=== PATIENT | female | born 1955 | race Caucasian/White ===

== ENCOUNTER 2024-10-08 23:30 | Emergency (ER) | payer MEDICARE, SELFPAY ==
--- OUTSIDE RECORDS SUMMARY | 2024-05-09 05:01 | XMS_ITS | Continuity of Care Document ---
Author Organization [facility] Address [address] [address] [place] [address] Phone Care Team Providers Care Environmental Science Technician Name Role Phone Yenny Walsh CRNA Unavailable Unavailable Allergies, Adverse Reactions, Alerts Substance Reaction Status Criticality amoxicillin Rash Active No Information walnut raw tissue in mouth Active No Infor mation No Known Allergies Resolved No Inform ation WARNIN allergy(ies) could not be collected because the type is not supported. Please contact the source practice for further details. Medications Medication Instructions Dosage Effective Dates (start - stop) Status Comments PAROXETINE HCL (unknown strength) take 1 tablet by oral route every day Not Available - Active medroxyprogesterone 2.5 mg tablet take 1 tablet by oral route every day 2.5 MG - Active Divigel 0.25 mg/0.25 gram (0.1 %) transdermal gel packet apply 1 packet by topical route every day to upper thigh - Active escitalopram 5 mg tablet take 1 tablet b y oral route every day 5 MG - Active Vitamin D3 400 unit capsule take 1 tablet by oral route every day 1 tablet - Active PROGESTERONE (unknown strength) take 1 capsule by oral route every day for 12 days in the evening sequentially per 28 day cycle Not Available - No Longer Active Procedures Procedure Date Colonoscopy Flex; W/remov Les- 24 Level Iv-surg Path Gross/micro 24 Colonoscopy Flex; W/bx 1/mx Level Iv-surg Path Gross/micro 19 Colonoscopy Flex; W/remov Les- 14 Level Iv-surg Path Gross/micro 14 Colonosocpy Flex; Remov Les-fo 09 Level Iv-surg Path Gross/micro 09 Advance Directives Directive Yes / No Effective Date File Name No Information Encounters Encounter Description Practice Location Reason(s) For Visit Diagnoses Date Provider Providers Copied on Encounter [facility], [address] [address], [place], [place], [id number], [place] tel:[phone] [facility] No Information 4 Nico Ramon. [address] [facility], [address], [id number], [place]. tel:[phone] Referring Provider: [place], [address] [place] [address], [address]. [phone] [facility], [address] [address], [place], [place], [id number], [place] tel:[phone] [facility] GI Symptoms or Concerns (chief complaint) Colorectal polypsHemorrhoi ds, internalEncount er for follow-up examination after completed treatment for conditions other than malignant neoplasmBenign neoplasm of transverse colonBenign neoplasm of sigmoid colon 4 Violeta Rizo. [address] [facility], [address], [id number], [place]. tel:[phone] Referring Provider: Referral Self, USE FOR SELF REFERRALS. [facility], [address] [address], [place], [place], [id number], [place] tel:[phone] [facility] No Information 4 Jey Zhao. [address] [facility], [facility] [address], [place], [id number], [place]. tel:[phone] [facility], [address] [address], [place], [place], [id number], [place] tel:[phone] [facility] No Information 9 No Information Referring Provider: Isaiah Garcia MD, [address] [facility] [address], [place], [address]. tel:[phone] [facility], [address] [address], [place], [place], [id number], tel:[phone] [facility] Colorectal polypsPersonal history of colonic polypsDiverticu losis of colonInternal hemorrhoidsEnco unter for screening for malignant neoplasm of colonBenign neoplasm of ascending colonBenign neoplasm of transverse colonEncounter for screening for malignant neoplasm of colonBenign neoplasm of transverse colonBenign neoplasm of ascending colonPersonal history of colonic polyps 9 Radha Colon. [address] [facility], [facility] [address], [place], [place], [id number], [place]. tel:[phone] Referring Provider: Referral Self, USE FOR SELF REFERRALS. [facility], [address] [address], [place], [place], [id number], [place] tel:[phone] [facility] Personal History Colon PolypsPersonal history of colonic polyps 4 No Information [facility], [address] [address], [place], [place], [id number], [place] tel:[phone] [facility] Colon polypPersonal history of colon polypPersonal History Colon PolypsBenign Neoplasm Colon 4 No Information Referring Provider: Referral Self, USE FOR SELF REFERRALS. [facility], [address] [address], [place], [place], [id number], [place] tel:[phone] [facility] Family Hx GI Tract CancerColon Cancer ScreeningBenign Neoplasm Lg BowelFamily Hx GI Tract Cancer 9 No Information Family History Family Member Type Diagnosis Age At Onset Mother Problem (finding) Colon polyps Father Problem (finding) Alive and well Mother Problem (finding) Alive and well Father Problem (finding) Asthma Son Problem (finding) Alive and well Mother Problem (finding) cancer of colon Father Problem (finding) Diverticular disease Son Problem (finding) asthma Daughter Problem (finding) Alive and well Immunizations Vaccine Date Status Comments SARS-COV-2 (COVID-19) vaccin e, mRNA, spike protein, LNP, preservative free, 100 mcg/0.5mL dose or 50 mcg/0.25mL dose administered Note: [facility] bi -directional interface ; Source: Other Registry Afluria Qd administered Note: [facility] bi-directional interface ; Source: Other Registry tetanus toxoid, reduced diphtheria toxoid, and acellular pertussis vaccine, adsorbed administered Note: [facility] b i-directional interface ; Source: Other Registry Influenza, split virus, trivalent, injectable, contains preservative administered Note: [facility] bi-direct ional interface ; Source: Other Registry Influenza, seasonal, injectable administe red Note: [facility] bi- directional interface ; Source: Other Registry tetanus and diphtheria toxoi ds, adsorbed, preservative free, for adult use (2 Lf of tetanus toxoid and 2 Lf of diphtheria toxoid) administered Note: [facility] bi-direct ional interface ; Source: Other Registry tetanus and diphtheria toxoi ds, adsorbed, preservative free, for adult use (2 Lf of tetanus toxoid and 2 Lf of diphtheria toxoid) administered Note: [facility] bi-direct ional interface ; Source: Other Registry Payers Payer name Insurance type Covered green party ID Authoriza tion(s) Blue Cross Medicare Advantage [id number] 2000 Social History Type Description Quantity Date Captured Comments Sex Female Smoking Status No Information Chief Complaint And Reason For Visit No Information Reason For Referral Reason For Referral No Information Plan Of Treatment Date Type Action Status Referral Ordered: Colonoscopy Appointment date/timeframe: 05/05/2019 ordered History Of Present Illness Encounter Date Complaint History Of Prese nt Illness GI Symptoms or Concerns Functional Status Date Functional Assessmen t No Information Instructions Date Instruction Additional Infor mation Colon Cancer Prevention Related to Colorectal polyps Colon Polyps Related to Color ectal polyps Hemorrhoids (Internal) Related t o Colorectal polyps Diverticulosis/Diverticulitis Re lated to Personal history of colonic polyps Colon Polyps Related to Perso nal history of colonic polyps Hemorrhoids Related to Perso nal history of colonic polyps Colon Cancer Prevention Related to Personal history of colonic polyps High Fiber Diet Related to Perso nal history of colonic polyps Colon Cancer Prevention Related to Colon polyp Colon Polyps Related to Colon polyp Assessments Type Assessment Date No Information Patient Care Teams Name Effective Dates (start - stop) Status Members No Information
--- OUTSIDE RECORDS SUMMARY | 2024-10-08 15:40 | XMS_ITS | Encounter Summary ---
Author Organization [facility] Address [address], [place] [address] Care Team Providers Care Draw Frame Runner Name Role Phone LesterTelly martins MD Primary Care Provider [phone] Reason for Visit * Reason Comments Animal Bite Encounter Details Date Type Department Care Team (Late st Contact Info) Description 10/08/2024 3:40 PM CDT Office Visit [place] [facility] [address] [place] [address] [place] [address] [place], [place] [phone] Dog bite, initial encounter Social History Tobacco Use Types Packs/Day Years Used Date Smoking Tobacco: Never Smokeless Tobacco: Never Alcohol Use Standard Drinks/Week Comments Yes 0 (1 standard drink = 0.6 oz pur e alcohol) on occasion PHQ-2 Answer Date Recorded PHQ-2 Score 0 09/03/2020 Comments No Sex and Gender Information Value Date Recorded Sex Assigned at Not on file Legal Sex Female 1:56 PM CDT Gender Identity Not on file Sexual Orientation Not on file documented as of this encounter Last Filed Vital Signs Vital Sign Reading Time Taken Comments Blood Pressure 122/67 10/08/2024 3:35 PM CDT Pulse 68 10/08/2024 3:35 PM CDT Temperature 36.7 C (98 F) 10/08/2024 3:35 PM CDT Respiratory Rate 16 10/08/2024 3:35 PM CDT Oxygen Saturation 98% 10/08/2024 3:35 PM CDT Inhaled Oxygen Concentration - - Weight - - Height - - Body Mass Index - - documented in this encounter Progress Notes * Fina Thomas MD - 10/08/2024 3:40 PM CDT Brenna Hope is a 69 y.o.female presents to the Urgent Care for Animal Bite Symptoms began: 9 hour(s) ago. Fever: absent. Other associated symptoms: dog bite to left hand - dog up to date on shots. Td 2017. Hand is stiff and painful Patient requests an excuse letter for work/school: No Subject 64 years old female presented today to clinic with her with concern about she gotbitten by her own doc, her doc is up-to-date with immunization, the bite is on her left hand. She washed it tried away with soap and water she put some triple antibiotic on it and she came to the clinic, her tetanus shots it was 2017, reviewed the system above all other negative No past medical history on file. Object BP 122/67 (BP Location: Right Arm, BP Cuff Size: Regular - Long) Pulse 68 Temp 36.7 ??C (98 ??F) (Oral) Resp 16 SpO2 98% Vital signs stable alert oriented she does not seems to be distress HEENT negative neck supple Lungs clear Cardiac S1-S2 regular Her upper extremities shoulder elbow wrist joints symmetrical she has penetrated wound in her left hand in 2 places close to her left wrist were the upper bite area is joints soft tissues swollen thejoint but the soft tissue swollen it is not red not hot not tender at this time the rest of her dorsal side of the hand it is not swollen no redness, I squeeze on the bite area the bite are deep, ther e was some fluid coming probably it was from also her fluid that is she wash the hand, there is no indication at this time in so short time that is pus formed, and patient stated it hurt Assessment Dog bite left hand patient took it is up-to-date with immunization I did irrigated with good amount of normal saline 16 in gauge needle deep irrigation almost each side 20 cc Because of the swollen is concern of deep infection patient is allergic to amoxicillin I give her 1g Rocephin Put her also on doxycycline b.i.d. and Flagyl 500 mg 3 times a day, tetanus shots also given Worse additional symptom concern question back to the clinic I warned the patient if any swollen joint pain the pain redness fever need to be seen right away to the emergency room she may need IV antibiotic If continue to improve please rechecked in 72 hours she agree 30 minute management face to face with the patient documented in this encounter Nursing Notes * Rosanne Bowling RN - 10/08/2024 3:40 PM CDT Brenna Hope is a 69 y.o.female presents to the Urgent Care for Animal Bite Symptoms began: 9 hour(s) ago. Fever: absent. Other associated symptoms: dog bite to left hand - dog up to date on shots. Td 2017. Hand is stiff and painful Patient requests an excuse letter for work/school: No documented in this encounter Plan of Treatment Not on file documented as of this encounter Visit Diagnoses Diagnosis Dog bite, initial encounter documented in this encounter Administered Medications Inactive Administered Medications - up to 3 most recent administrations Medication Order MAR Action Action Date Dose Rate Site cefTRIAXone (ROCEPHIN) 1,000 mg in lidocaine PF (XYLOCAINE) 1 % 350 mg/mL IM injection 1,000 mg, Intramuscular, ONCE, On 10/08/24 at 1700, For 1 dose, ALL MEDICATIONS REQUIRING DOSAGE CALCULATION REQUIRE TWO CLINICAL STAFF TO VERIFY Provider orders need to be rounded to the nearest 50mg increment due to the inability to precisely draw up doses to the hundredth of a milliliter. Approved Diluents: 0.9% sodium chloride for injection, lidocaine, sterile water for injection For doses greater than 250 mg Ceftriaxone (ROCEPHIN) dilution instructions to make a 350 mg/mL concentration. Dilute 500 mg vial with 1.0 mL lidocaine 1% solution Dilute 1 gram vial with 2.1 mL lidocaine 1% solution Dosing Instructions: Dose Volume 300 mg 0.9 ml 350 mg 1 ml 400 mg 1.1 ml 450 mg 1.3 ml 500 mg 1.4 ml* 550 mg 1.6 ml 600 mg 1.7 ml 650 mg 1.9 ml 700 mg 2 ml 750 mg 2.1 ml 800 mg 2.3 ml 850 mg 2.4 ml 900 mg 2.6 ml 950 mg 2.7 ml 1 g 2.9 ml * *Withdraw entire reconstituted amount; reconstituted liquid may vary and not be a complete 1.4 mL Withdraw entire reconstituted amount; reconstituted liquid may vary and not be a complete 2.9 mL Example: Provider orders 350 mg. Use the 500 mg vial and add 1 mL diluent. Volume to draw up and administer is 1 ml. The remaining medication is discarded. Example: Provider orders 500 mg. Use the 500 mg vial and add 1 mL diluent. Volume to draw up and administer is 1.4 ml. There is no remaining medication. Example: Provider orders 850 mg. Use the 1 g vial and add 2.1 mL diluent. Volume to draw up and administer is 2.4 ml. The remaining medication is discarded. Example: Provider orders 1 g. Use the 1 g vial and add 2.1 mL diluent. Volume to draw up and administer is 2.9 ml. There is no remaining medication, Indications: Skin and Soft Tissue InfectionIndications:Ski n and Soft Tissue Infection Given 10/08/2024 4:55 PM CDT 1,000 mg Left Ventralgluteal documented in this encounter Care Teams Draw Frame Runner Relationship Specialty [place] [address] [place] [address] PCP - General Family Practice 10/16/16 documented as of this encounter
--- OUTSIDE RECORDS SUMMARY | 2024-10-08 15:40 | XMS_ITS | Encounter Summary ---
Author Organization [facility] Address [address], [place] [address] Care Team Providers Care Capacity Management Specialist Name Role Phone LesterTelly martins MD Primary Care Provider [phone] Reason for Visit * Reason Comments Animal Bite Encounter Details Date Type Department Care Team (Late st Contact Info) Description 10/08/2024 3:40 PM CDT Office Visit [place] [address] [facility] [address] [place] [address] [place] [address] [place], [place] [phone] Dog bite, initial encounter Social History Tobacco [...] Ventralgluteal documented in this encounter Care Teams Capacity Management Specialist Relationship Specialty [place] [address] [place] [address] PCP - General Family Practice 10/16/16 documented as of this encounter
--- OUTSIDE RECORDS SUMMARY | 2024-10-08 23:32 | XMS_ITS | Clinical Summary ---
Author Organization [facility] Address [address] [facility] [place] [address] Care Team Providers Care Neonatologist Name Role Phone LesterTelly MD Primary Care Provider [phone] Source Comments You are receiving this document as you are listed as the primary care provider,follow-up provider, or the patient has been referred to you for consultation.This is in compliance with the Medicare and[facility] EHR Incentive Program,which states Providers who transition their patient to another setting of careor provider of care or refers their patient to another provider of care shouldprovide summary care record for each transition of care or referral. [facility] Allergies Active Allergy Reactions Criticality Noted Date Comments Amoxicillin Rash 10/16/2016 Other Hives,Other, see comments High 07/09/2022 Medications medroxyPROGESTE Hudson (PROVERA) 2.5 MG tablet Take 2 Tablets by mouth daily. 9 Active omega-3 fatty acids (FISH OIL) 1000 MG capsule Take 2 Capsules (2,000 mg) by mouth daily. Active PARoxetine (PAXIL) 10 MG tablet Take 1 Tablet (10 mg) by mouth daily. 3 Active traZODone (DESYREL) 50 MG tablet Take 1 Tablet (50 mg) by mouth daily at bedtime. 2 Active calcium carbonate 600 MG tablet Take 1 Tablet (600 mg) by mouth daily. Active estradiol (ESTRACE) 0.1 MG/GM vaginal cream SMARTSI.25 Applicator Vaginal 3 Times a Week 4 Active doxycycline hyclate (VIBRA-TABS) 100 MG tabletIndicatio ns:Dog bite, initial encounter Take 1 Tablet (100 mg) by mouth two times a day for 10 days. 20 Tablet 5 10/19/19 25 Active metroNIDAZOLE (FLAGYL) 500 MG tabletIndicatio ns:Dog bite, initial encounter Take 1 Tablet (500 mg) by mouth two times a day for 10 days. 20 Tablet 5 10/19/19 25 Active Hospital, Clinic, or Other Facility Administered Medication Ordered Dose Route Frequency Start Date End Date Status cefTRIAXone (ROCEPHIN) 1,000 mg in lidocaine PF (XYLOCAINE) 1 % 350 mg/mL IM injectionIndications:Skin and Soft Tissue Infection 1000 mg IM ONCE 10/08/2024 10/08/2024 Ended Active Problems Problem Noted Date Diagnosed Date Hot flashes 10/16/2016 Encounters Date Type Department Care Team Description 10/08/2024 3:40 PM CDT Office Visit [facility] [address] [facility] [address] [place] [address] Fina Thomas MD Dog bite, initial encounter from Last 3 Months Immunizations Immunization Administration Dates Next Due Flu Vac (3+ yrs) 04/23/2006 Influenza IIV4 (Quadrivalent) 0.5mL (32973) 02/09 Influenza, Unspecified Formulation 03/05/2020 Moderna Monovalent 12+ 08/23/2020 Td (7+ yrs) 04/10/2005,01/20/2003 Tdap 10/08/2024,10/16/2016 Family History Medical History Relation Name Comments Ulcerative Colitis Mother Cancer, Breast Negative Family History Cancer, Ovary Negative Family History Relation Name Status Comments Father Mother Alive Social History Tobacco Use Types Packs/Day Years Used Date Smoking Tobacco: Never Smokeless Tobacco: Never Tobacco Cessation:Counseling Given: Not Answered Alcohol Use Standard Drinks/Week Comments Yes 0 (1 standard drink = 0.6 oz pur e alcohol) on occasion PHQ-2 Answer Date Recorded PHQ-2 Score 0 09/03/2020 Comments No Sex and Gender Information Value Date Recorded Sex Assigned at Not on file Legal Sex Female 1:56 PM CDT Gender Identity Not on file Sexual Orientation Not on file Last Filed Vital Signs Vital Sign Reading Time Taken Comments Blood Pressure 122/67 10/08/2024 3:35 PM CDT Pulse 68 10/08/2024 3:35 PM CDT Temperature 36.7 C (98 F) 10/08/2024 3:35 PM CDT Respiratory Rate 16 10/08/2024 3:35 PM CDT Oxygen Saturation 98% 10/08/2024 3:35 PM CDT Inhaled Oxygen Concentration - - Weight 66.7 kg (147 lb) 07/09/2022 11:05 AM CRUSHER OPERATOR Height 167.6 cm (5' 6) 07/09/2022 11:05 AM CRUSHER OPERATOR Body Mass Index 23.73 07/09/2022 11:05 AM CRUSHER OPERATOR Plan of Treatment Health Maintenance Due Date Last Done Comments Hep C Screening (Preventive Services) 1955 Medicare Annual Wellness Visit 1955 Cholesterol 2001 Pneumococcal Vaccine 50+ Yrs (1 of 1 - PCV) 2006 Zoster/Shingles Vaccine (1 of 2) 2006 COVID-19 Vaccine (2 - season) 2024 08/23/2020 Influenza Vaccine (Season Ended) 2025 03/06/2020, 03/05/2020, 04/23/2006 Mammogram 04/30/2025 04/30/2023, 040 12/2020 (Completed), 03/11/2016 (Completed) Colonoscopy 05/09/2027 05/09/2024, 05/2018 (Completed), 04/10/2015 (Completed) RSV Vaccine (1 - 1-dose 75+ series) 08/23/2031 DTaP/Tdap/Td Vaccine (3 - Tdap) 10/08/2034 10/08/2024, 10/16/2016, 04/10/2005, Additional history exists Cervical Cancer Screening Discontinued 2017 (Completed), 12/10/2015 (Completed) Dexa Completed 06/02/2021, 06/02/2021 HepA Vaccine Aged Out No longer eligi ble based on patient's age to complete this topic HepB Vaccine Aged Out No longer eligi ble based on patient's age to complete this topic Hib Vaccine Aged Out No longer eligi ble based on patient's age to complete this topic IPV (Polio) Vaccine Aged Out No longe r eligible based on patient's age to complete this topic MCV4 Vaccine Aged Out No longer eligi ble based on patient's age to complete this topic Meningococcal B Vaccine Aged Out No l onger eligible based on patient's age to complete this topic Procedures Procedure Name Priority Date/Time Associated Diagnosis Comments COLONOSCOPY S 05/09/2024 MM MAMMOGRAM SCREENING BILAT W CAD Routine 04/30/2023 10:50 AM CRUSHER OPERATOR Visit for screening mammogram BONE DENSITY 06/02/2021 from Last 3 Months or Most Recently Relevant to Health Maintenance Results * COLONOSCOPY S (05/09/2024) Telly Batista MD DUMMY/OTHER/AR Final Result * (ABNORMAL) MM Mammogram Screening Bilat W CAD (04/30/2023 10:50 AM CRUSHER OPERATOR) Anatomical Region Laterality Modality Breast Bilateral Mammography Impressions 04/30/2023 2:48 PM CRUSHER OPERATOR : ACR BI-RADS Category: 0 - Incomplete: Needs Additional Imaging Evaluation (left) RECOMMENDATION: Ultrasound The results and recommendations of this examination will be communicated to the patient and the imaging center will attempt to schedule any recommended follow up with the patient. As a result of the Century Cures Act, all medical imaging exams are released immediately to [facility]. You may be viewing this report before our scheduling staff and your referring provider. We will attempt to contact you by phone within one business day of this report to schedule any recommended follow-up exams. If you have questions, please contact your health care provider. Narrative 04/30/2023 2:48 PM CRUSHER OPERATOR MM MAMMOGRAM SCREENING BILAT W CAD performed on 04/30/23 Compared to: 08/16/2020 Foreign Image(S) Mammogram, 02/01/2018 Foreign Image(S) Mammogram, 04/24/2016 Foreign Image(S) Mammogram, and 10/20/2012 Foreign Image(S) Mammogram FINDINGS: Bilateral screening mammogram was performed with the assistance of Computer-Aided Detection . The breasts have scattered areas of fibroglandular density. There is an asymmetry in the left breast at the 2 o'clock position at anterior depth. The remainder of the breast tissue is unremarkable. us Linda Chicas MD RAD GIO Final Re sult * BONE DENSITY (06/02/2021) Anatomical Region Laterality Modality Other us Interface Provider DUMMY/OTHER/AR Final Resu lt from Last 3 Months or Most Recently Relevant to Health Maintenance Insurance [facility] MEDICARE ADVANTAGE BCBS MEDICARE ADVANTAGE [employer] BCBS MEDICARE ADVANTAGE Care Teams Neonatologist Relationship Specialty [place] [address] [place] [address] PCP - General Family Practice 10/16/16
--- OUTSIDE RECORDS SUMMARY | 2024-10-08 23:32 | XMS_ITS | Clinical Summary ---
Author Organization [facility] Address [address] [place] [address] Care Team Providers Care Asset Protection Greeter Name Role Phone Unknown, Doctor Primary Care Provider Unavailabl e Allergies Active Allergy Reactions Criticality Noted Date Comments Amoxicillin Nausea Only 10/18/2010 Medications [place]-3 Fatty Acids (FISH OIL) 500 mg capsule Take by mouth once daily. Two daily 0 10/18/2010 Active estradiol-noret hindrone, 0.05-0.14 mg, (COMBIPATCH) 0.05-0.14 mg/24 hr patch Apply 1 Patch on dry, clean, hairless skin every Thursday and . 0 10/21/2010 Active ketoconazole (NIZORAL) 200 mg tabletIndicatio ns:Tinea corporis Take 1 tablet by mouth once daily. 28 tablet 0 10/23/2011 Active Active Problems No known active problems Immunizations Immunization Administration Dates Next Due Td (Age >=7 Years) 04/10/2005 Family History Medical History Relation Name Comments Heart Disease Maternal Grandmother CHF Heart Disease Mother RHR Hypertension Mother Relation Name Status Comments Maternal Grandmother Mother Social History Tobacco Use Types Packs/Day Years Used Date Smoking Tobacco: Never Smokeless Tobacco: Never Tobacco Cessation:Counseling Given: No Alcohol Use Standard Drinks/Week Comments Yes 3.3 (1 standard drink = 0.6 oz p ure alcohol) Comments No Sex and Gender Information Value Date Recorded Sex Assigned at Not on file Legal Sex Female 8: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 Gender Identity Not on file Sexual Orientation Not on file Obstetrics History Last Filed Vital Signs Vital Sign Reading Time Taken Comments Blood Pressure 122/60 04/27/2013 10:07 AM GENERAL I FARMWORKER Pulse 60 04/27/2013 10:07 AM GENERAL I FARMWORKER Temperature 36.3 C (97.3 F) 04/27/2013 10:07 AM GENERAL I FARMWORKER Respiratory Rate - - Oxygen Saturation - - Inhaled Oxygen Concentration - - Weight 66.2 kg (146 lb) 04/27/2013 10:07 AM GENERAL I FARMWORKER Height 167.6 cm (5' 6) 04/27/2013 10:07 AM GENERAL I FARMWORKER Body Mass Index 23.56 04/27/2013 10:07 AM GENERAL I FARMWORKER Plan of Treatment Health Maintenance Due Date Last Done Comments Tdap 08/23/1967 Depression screening for age 12+ 1968 BMI (ht and wt on same day) for age 18+ 1974 Hepatitis C screening for age 18-79 1974 Pneumococcal series for age 50+ (1 of 1 - PCV) 2006 Zoster (shingles) series for age 50+ (1 of 2) 2006 Lipids for age 45-75 04/23/2011 04/23/2006 (Completed outside of [facility]) Mammogram for age 45-75 10/20/2013 10/20/2012, 02/24 Tetanus booster 04/10/2015 04/10/2005 Colonoscopy through age 75 04/27/201904/27, 04/24/2009 (Completed outside of [facility]), 04/24/2009 DEXA/DXA scan for age 65+ 2021 COVID-19 vaccine series ( - 2023- season) 2024 Influenza Vaccine (Season Ended) 2025 RSV vaccine for adults or (1 - 1-dose 75+ series) 08/23/2031 Hepatitis B series for 19+ Aged Out N o longer eligible based on patient's age to complete this topic Procedures Procedure Name Priority Date/Time Associated Diagnosis Comments SCAN-COLONOSCOPY 04/27/2014 1:00 PM GENERAL I FARMWORKER SCAN-MAMMOGRAPHY REPORT 10/20/2012 12:00 AM CDT from Last 3 Months or Most Recently Relevant to Health Maintenance Results * SCAN-COLONOSCOPY (04/27/2014 1:00 PM GENERAL I FARMWORKER) Narrative Transcriptions Gregg Pinto - 04/27/2014 12:07 PM CST [facility] [address], [address], [place] [address] Patient Name: Brenna Hope Gender: Female Exam Date: 04/27/2014 Visit Number: [id number] Age: 58 Years Date of : 1955 Attending MD: Gregg Pinto MD Medical Record#: [id number] ----- Procedure: Colonoscopy Indications: Previous adenomatous polyp(s) Referring MD: Referral Self Primary MD: No Primary Medications: Intra Procedure Medications: Fentanyl given 0.1 mg by IV Midazolam given 4 mg by IV Complications: Procedure: An examination of the heart and lungs was performed and found to be withinacceptable limits. The patient was therefore deemed a reasonablecandidate for endoscopy and {cons_sedation: Unexpected Value} sedation. The risks and benefits of the procedure were explained to the patient.After obtaining informed consent, the patient was sedated under mydirection and I passed the scope without difficulty via the rectum to the cecum. The appendiceal orificeand ic valve were identified. The scope was retroflexed during theexamination The quality of the prep was good (Miralax/Gatorade/2 tabletsBisacodyl/Magnesium Citrate). This was a complete examination throughout the entire colon. Findings: Polyp location: descending colon. Quantity: 1. Size: 2 mm. Polyp shape:sessile. Maneuver: polypectomy was performed with a cold snare. Removal: complete. Retrieval: complete. Bleeding: none. Polyp location: sigmoid. Quantity: 1. Size: 2 mm. Polyp shape: sessile. Maneuver: polypectomy was performed with a cold snare . Removal: complete. Retrieval: complete. Bleeding: none. Remainder of the exam is normal. Impression: Colon polyp Personal history of colon polyp Pathology Results: A: COLON, DESCENDING, POLYP: 1. Sessile serrated adenoma (see comment) 2. No overt dysplasia present 3. Per the attached endoscopy report: a. Polyp size: 2mm b. Resection: Complete c. Retrieval: Complete B: COLON, SIGMOID, POLYP: Hyperplastic polyp MICROSCOPIC A: Performed B: Performed Electronically signed by: Tyrell Zeng MD Final Plan: Return for a colonoscopy in 5 years. We will attempt to contact you at appropriate intervals via U.S. mail. Wemay not be able to find you or contact you at that time, therefore youshould know that the responsibility for following our recommendation restswith you. If you don't hear from us at the time your procedure is due,please contact our office to schedule an appointment. If your contactinformation should change, please contact our office so that we can updateyour record. Plan Comments: _Electronically signed by: Gregg Pinto MD 04/27/2014 cc: Referral Self No Primary us Gregg Pinto MD OTHER Final Result * SCAN-MAMMOGRAPHY REPORT (10/20/2012 12:00 AM CDT) Anatomical Region Laterality Modality Other Narrative 10/22/2012 10:20 PM CDT Procedure Note Scanner - 10/20/2012 12:00 AM CDT us Scanner OTHER Final Result from Last 3 Months or Most Recently Relevant to Health Maintenance Insurance [facility] [employer] [place] [id number] Care Teams Asset Protection Greeter Relationship Specialty Start Date End Date Unknown, Doctor . PCP - General 03/05/18
[2024-10-08 23:35] VITALS: BP 97/71; PULSE 83; RESP 16; TEMP 36.8; O2SAT 96; BMI 23.7
--- NOTE | 2024-10-08 23:45 | ED.GENADULT ---
HPI - General Adult General Chief complaint: Animal Bite Stated complaint: left hand swelling after dog bite Time Seen by Provider: 10/08/24 23:32 Source: patient Mode of arrival: ambulatory Limitations: no limitations History of Present Illness HPI narrative: 69-year-old female coming in today follow-up of a dog bite that occurred this morning. Patient was seen in the urgent care was given a shot of an antibiotic, unclear which 1 it was, her tetanus shot was updated and she was sent home with metronidazole and doxycycline. Patient has taken 1 tablet of doxycycline. Her hand has since become more swollen and she was instructed to follow up if she felt that things were getting worse. She does complain of pain in that hand. She has been taking 400 mg of ibuprofen periodically throughout the day which does seem to help a little bit but she is having her time finding a comfortable position at night to sleep. Denies any systemic symptoms. Dog belongs to the patient and is fully vaccinated. Related Data Home Medications ?Medication ?Instructions ?Recorded ?Confirmed doxycycline hyclate 100 mg tablet 100 mg PO BID 10/08/24 10/08/24 estradiol 0.025 mg/24 hr 1 patch topical 2XW 10/08/24 10/08/24 semiweekly transdermal patch metronidazole 500 mg tablet 500 mg PO BID 10/08/24 10/08/24 paroxetine HCl 10 mg tablet 10 mg PO DAILY 10/08/24 10/08/24 progesterone micronized 100 mg 100 mg PO DAILY 10/08/24 10/08/24 capsule Allergies Allergy/AdvReac Type Severity Reaction Status Date / Time amoxicillin AdvReac Unknown Rash Verified 10/08/24 23:39 Review of Systems Status of ROS: Reports: 6 or more systems reviewed and unremarkable except as noted in History and below [facility] Social History Smoking Status: Never smoker Second hand tobacco smoke exposure: No How often do you have a drink containing alcohol: never AUDIT-C Alcohol total score: 0 Non-prescribed substance use: denies use Exam Narrative: Exam Narrative: Well-nourished well-developed patient in no acute distress. Alert and oriented. Answers questions appropriately. Mood and affect are appropriate. Thoughts are goal oriented and rational. No tangential or magical thinking noted. Patient speaks in full sentences without needing to catch her breath. HEENT: Normocephalic atraumatic. Pupils are equally round reactive to light. Extraocular muscles are intact. Conjunctivae are moist without any icterus noted. Moist mucous membranes. Extremities: Patient's left hand has swelling on the dorsal surface that extends into the wrist. She has no tenderness at the wrist joint itself. The bite wounds are actually quite small. The hand is not erythematous. It is warm to touch. Normal radial pulse. Normal capillary refill. Moves all fingers without difficulty. Skin: Well perfused. Const: Vital Signs, click to edit/add: Vital Signs - 24 hr 10/08/24 23:35 Temperature 98.3 F Pulse Rate [Pulse Oximeter] 83 Respiratory Rate 16 Blood Pressure [Ri ght Upper Arm] 97/71 Pulse Oximetry 96 Oxygen Delivery Me thod Room Air Course Vital Signs Vital signs: Initial Vital Signs Temperature 98.3 F 10/08/24 23:35 Temperature Source Temporal Artery Scan 10/08/24 23:35 Pulse Rate 83 10/08/24 23:35 Respiratory Rate 16 10/08/24 23:35 Blood Pressure 97/71 10/08/24 23:35 Blood Pressure Mean 79 10/08/24 23:35 Blood Pressure Position Sitting 10/08/24 23:35 Pulse Oximetry 96 10/08/24 23:35 Oxygen Delivery Method Room Air 10/08/24 23:35 Vital Signs Temperature 98.3 F 10/08/24 23:35 Pulse Rate 83 10/08/24 23:35 Respiratory Rate 16 10/08/24 23:35 Blood Pressure 97/71 10/08/24 23:35 Pulse Oximetry 96 10/08/24 23:35 Oxygen Delivery Method Room Air 10/08/24 23:35 Temperature 98.3 F 10/08/24 23:35 Pulse Rate 83 10/08/24 23:35 Respiratory Rate 16 10/08/24 23:35 Blood Pressure 97/71 10/08/24 23:35 Pulse Oximetry 96 10/08/24 23:35 Oxygen Delivery Method Room Air 10/08/24 23:35 Medical Decision Making MDM Narrative Medical decision making narrative: 69-year-old female status post dog bite today. Swelling is as expected. Will go ahead and give the patient Hardy for pain management. Discussed side effects. Continue antibiotic treatment as prescribed. Discharge Plan Discharge Clinical Impression: Dog bite Patient Disposition: Home, Self-Care Additional Instructions: The amount of swelling seen today is as expected. If you notice that the hand starts to become more red after the next 24 hours then I would recommend following up again. Continue all antibiotics as prescribed. Take pain medications as needed/as prescribed. Narcotic pain medications can cause constipation and can increase your risk of falling. Use caution when taking them and do not drive. 8 tablets of Hardy sent to [facility]. Prescriptions: No Action paroxetine HCl 10 mg tablet 10 mg PO DAILY metronidazole 500 mg tablet 500 mg PO BID doxycycline hyclate 100 mg tablet 100 mg PO BID progesterone micronized 100 mg capsule 100 mg PO DAILY estradiol 0.025 mg/24 hr patch semiweekly 1 patch topical 2XW Stand Alone Forms: [employer] Info Instructions
[2024-10-09 00:12] VITALS: BP 105/74; PULSE 78; RESP 16; TEMP 36.8; O2SAT 96
--- OUTSIDE RECORDS SUMMARY | 2024-10-09 00:12 | XMS_ITS | Clinical Summary ---
Author Organization [facility] Address [address] [place] [id number] Care Team Providers Care Estate Agent Name Role Phone Unknown, Doctor Primary Care Provider Unavailabl e Allergies Active Allergy Reactions Criticality Noted Date Comments Amoxicillin Nausea Only 10/18/2010 Medications [place]-3 Fatty Acids (FISH OIL) 500 mg capsule [...] file Legal Sex Female 8:09 AM GENERAL EDUCATION PROFESSOR Gender Identity Not on file Sexual Orientation Not on file Obstetrics History Last Filed Vital Signs Vital Sign Reading Time Taken Comments Blood Pressure 122/60 04/27/2013 10:07 AM GENERAL EDUCATION PROFESSOR Pulse 60 04/27/2013 10:07 AM GENERAL EDUCATION PROFESSOR Temperature 36.3 C (97.3 F) 04/27/2013 10:07 AM GENERAL EDUCATION PROFESSOR Respiratory Rate - - Oxygen Saturation - - Inhaled Oxygen Concentration - - Weight 66.2 kg (146 lb) 04/27/2013 10:07 AM GENERAL EDUCATION PROFESSOR Height 167.6 cm (5' 6) 04/27/2013 10:07 AM GENERAL EDUCATION PROFESSOR Body Mass Index 23.56 04/27/2013 10:07 AM GENERAL EDUCATION PROFESSOR Plan of Treatment Health Maintenance Due Date [...] age 45-75 04/23/2011 04/23/2006 (Completed outside of [facility]) Mammogram for age 45-75 10/20/2013 10/20/2012, 02/24 Tetanus booster 04/10/2015 04/10/2005 Colonoscopy through age 75 04/27/201904/27, 04/24/2009 (Completed outside of [facility]), 04/24/2009 DEXA/DXA scan for age 65+ 2021 COVID-19 vaccine series (2 - season) 2024 08/23/2020 Influenza Vaccine (Season Ended) 2025 RSV vaccine for adults or (1 - 1-dose 75+ series) 08/23/2031 Hepatitis B series for 19+ Aged Out N o longer eligible based on patient's age to complete this topic Procedures Procedure Name Priority Date/Time Associated Diagnosis Comments SCAN-COLONOSCOPY 04/27/2014 1:00 PM GENERAL EDUCATION PROFESSOR SCAN-MAMMOGRAPHY REPORT 10/20/2012 12:00 AM CDT from Last 3 Months or Most Recently Relevant to Health Maintenance Results * SCAN-COLONOSCOPY (04/27/2014 1:00 PM GENERAL EDUCATION PROFESSOR) Narrative Transcriptions Gregg Pinto - 04/27/2014 12:07 PM CST [facility] [address], [address], [place] [address] Patient Name: Brenna Hope Gender: Female Exam Date: 04/27/2014 Visit Number: [id number] Age: 58 Years Date of : 1955 Attending MD: Gregg Pinto MD Medical Record#: [id number] ----- Procedure: Colonoscopy Indications: Previous adenomatous polyp(s) [...] Most Recently Relevant to Health Maintenance Insurance [facility] [employer] INSURANCE [place] [id number] Care Teams Estate Agent Relationship Specialty Start Date End Date Unknown, Doctor . PCP - General 03/05/18
--- OUTSIDE RECORDS SUMMARY | 2024-10-09 00:13 | XMS_ITS | Clinical Summary ---
Author Organization [facility] Address [address] [place] [address] Care Team Providers Care Curing Pickling Packer Name Role Phone LesterTelly MD Primary Care Provider [phone] Source Comments You are receiving this document as you are listed as the primary care provider,follow-up provider, or the patient has been referred to you for consultation.This is in compliance with the Medicare andC[facility] Hospitalcaid EHR Incentive Program,which states Providers who transition their patient to another setting of careor provider of care or refers their patient to another provider of care shouldprovide summary care record for each transition of care or referral. [facility] Allerg[facility] Active Allergy Reactions Criticality Noted Date [...] Description 10/08/2024 3:40 PM CDT Office Visit [facility] [address] [place] [address] Fina Thomas MD Dog bite, initial encounter from Last 3 Months Immunizations Immunization Administration Dates Next Due Flu Vac (3+ yrs) 04/23/2006 Influenza IIV4 (Quadrivalent) 0.5mL (52341) 02/09 Influenza, Unspecified Formulation 03/05/2020 Moderna Monovalent [...] 66.7 kg (147 lb) 07/09/2022 11:05 AM MENAGERIE SUPERINTENDENT Height 167.6 cm (5' 6) 07/09/2022 11:05 AM MENAGERIE SUPERINTENDENT Body Mass Index 23.73 07/09/2022 11:05 AM MENAGERIE SUPERINTENDENT Plan of Treatment Health Maintenance Due Date [...] BILAT W CAD Routine 04/30/2023 10:50 AM MENAGERIE SUPERINTENDENT Visit for screening mammogram BONE DENSITY 06/02/2021 from Last 3 Months or Most Recently Relevant to Health Maintenance Results * COLONOSCOPY S (05/09/2024) Telly Batista MD DUMMY/OTHER/AR Final Result * (ABNORMAL) MM Mammogram Screening Bilat W CAD (04/30/2023 10:50 AM MENAGERIE SUPERINTENDENT) Anatomical Region Laterality Modality Breast Bilateral Mammography Impressions 04/30/2023 2:48 PM MENAGERIE SUPERINTENDENT : ACR BI-RADS Category: 0 - Incomplete: Needs Additional Imaging Evaluation (left) RECOMMENDATION: Ultrasound The results and recommendations of this examination will be communicated to the patient and the imaging center will attempt to schedule any recommended follow up with the patient. As a result of the Century Cures Act, all medical imaging exams are released immediately to [facility]. You may be viewing this report before our scheduling staff and your referring provider. We will attempt to contact you by phone within one business day of this report to schedule any recommended follow-up exams. If you have questions, please contact your health care provider. Narrative 04/30/2023 2:48 PM MENAGERIE SUPERINTENDENT MM MAMMOGRAM SCREENING BILAT W CAD performed [...] Most Recently Relevant to Health Maintenance Insurance [employer] MEDICARE ADVANTAGE BCBS MEDICARE ADVANTAGE [employer]URANCE [employer] BCBS MEDICARE ADVANTAGE Care Teams Curing Pickling Packer Relationship Specialty [place] [address] [place] [address] PCP - General Family Practice 10/16/16
== END 2024-10-09 00:12 | disposition home or self-care (01) ==
LOC: ED 10-09 00:10
PROVIDERS: Emergency Provider Family Medicine
DX: S60.572A Other superficial bite of hand of left hand, initial encounter (principal); W54.0XXA Bitten by dog, initial encounter
CPT/HCPCS: 99283